=== PATIENT | male | born 1970 | race American Indian/Alaskan Native ===

== ENCOUNTER 2017-02-13 14:13 | Emergency (ER) | payer SELFPAY | END 2017-02-13 14:14 | disposition left against medical advice (07) | LOC: ED 14:13 | DX: R11.2 Nausea with vomiting, unspecified (principal); Z53.21 Procedure and treatment not carried out due to patient leaving prior to being seen by health care provider ==

== ENCOUNTER 2018-04-24 08:23 | Emergency (ER) | payer SELFPAY ==
[2018-04-24] MEDS ORDERED: TORADOL IV ONE (08:52)
[2018-04-24 09:13] LABS: Basophils # (Auto) 0.1 K/mm3 (0.0-0.1); Basophils % (Auto) 0.8 % (0.0-1.8); Eosinophils # (Auto) 0.1 K/mm3 (0.0-0.4); Eosinophils % (Auto) 0.6 % (0.0-4.3); Hematocrit 46.2 % (35.5-45.6); Hemoglobin 15.6 gm/dl (11.8-15.2); Lymphocytes # (Auto) 4.4 K/mm3 (1.2-5.4); Mean Corpuscular HGB Conc 34 % (32-34); Mean Corpuscular Volume 94 fl (84-94); Monocytes # (Auto) 0.7 K/mm3 (0.0-0.8); Monocytes % (Auto) 5.5 % (0.0-7.3); Platelet Count 286 K/mm3 (140-440); Red Blood Count 4.91 M/mm3 (3.65-5.03); Red Cell Distribution Width 13.8 % (13.2-15.2)
[2018-04-24 09:21] LABS: INR 0.87 (0.87-1.13)
[2018-04-24 09:22] LABS: Partial Thromboplastin Time 37.2 Sec. (24.2-36.6)
[2018-04-24 09:27] LABS: BUN/Creatinine Ratio 11; Blood Urea Nitrogen 12 mg/dL (9-20); Calcium 9.6 mg/dL (8.4-10.2); Hemolysis Index 57
--- NOTE | 2018-04-24 09:39 | XRay Report ---
FINAL REPORT EXAM: XR CHEST ROUTINE 2V HISTORY: chest pain TECHNIQUE: Frontal and lateral views of the chest. PRIORS: None currently available. FINDINGS: Cardiac silhouette is within normal limits. There is no effusion. There is no pneumothorax. There is no consolidation. There are no suspicious osseous lesions. IMPRESSION: No acute cardiopulmonary findings.
--- NOTE | 2018-04-24 10:34 | Emergency Department Report ---
ED Chest Pain HPI - General Chief Complaint: Chest Pain Stated Complaint: CHEST PAIN Time Seen by Provider: 04/24/18 08:49 Source: patient Mode of arrival: Ambulatory Limitations: No Limitations - History of Present Illness Initial Comments: Patient is a 48-year-old -[place] male who is presenting with left-sided chest pain for the past 3 days. Patient states that 2 weeks ago he had a mild cough and congestion which is starting to improve but now has sharp pain in the left chest. Patient states the pain is worse with deep breathing. He also states he feels as though he is starting to become very irritated in his throat. Patient's states the pain is sharp in nature and is 8 out of 10 in severity. Patient denies any fevers chills Stiffness at this time. Patient states is the sharp pain hits with deep breathing he then starts to feel some tightness in the chest and felt near syncopal this morning which prompted him to come to the hospital. Severity scale (0 -10): 6 - Related Data Previous Rx's Medication Instructions Recorded Last Taken Type hydroCHLOROthiazide [HCTZ] 25 mg PO QDAY #20 tablet 05/13/13 Unknown Rx ALBUTEROL Inhaler (OR & NICU) 2 puff IH QID PRN #1 inhalation 04/24/18 Unknown Rx [ProAir HFA Inhaler] HYDROcodone/APAP 5-325 [[place] 1 each PO Q6HR PRN #15 tablet 04/24/18 Unknown Rx 5/325] predniSONE [Deltasone] 20 mg PO QDAY #5 tab 04/24/18 Unknown Rx Allergies Allergy/AdvReac Type Severity Reaction Status Date / Time No Known Allergies Allergy Verified 05/13/13 10:56 Heart Score - HEART Score History: Slightly suspicious EKG: Normal Age: 45-65 Risk factors: 1-2 risk factors Troponin: < normal limit HEART Score: 2 ED Review of Systems ROS: Stated complaint: CHEST PAIN Other details as noted in HPI Comment: All other systems reviewed and negative ED Past Medical Hx - Past Medical History Hx Hypertension: Yes Additional medical history: colitis - Surgical History Additional Surgical History: left femur fx - Social History Smoking Status: Never Smoker - Medications Home Medications: Home Medications Medication Instructions Recorded Confirmed Last Taken Type hydroCHLOROthiazide [HCTZ] 25 mg PO QDAY #20 tablet 05/13/13 Unknown Rx ALBUTEROL Inhaler (OR & NICU) 2 puff IH QID PRN #1 inhalation 04/24/18 Unknown Rx [ProAir HFA Inhaler] HYDROcodone/APAP 5-325 [[place] 1 each PO Q6HR PRN #15 tablet 04/24/18 Unknown Rx 5/325] predniSONE [Deltasone] 20 mg PO QDAY #5 tab 04/24/18 Unknown Rx ED Physical Exam - General Limitations: No Limitations General appearance: alert, anxious, other (crying during physical exam) - Head Head exam: Present: atraumatic, normocephalic - Eye Eye exam: Present: normal appearance - ENT ENT exam: Present: mucous membranes moist - Neck Neck exam: Present: normal inspection - Respiratory Respiratory exam: Present: normal lung sounds bilaterally, chest wall tenderness (left sided). Absent: respiratory distress, wheezes, rales, rhonchi - Cardiovascular Cardiovascular Exam: Present: regular rate, normal rhythm. Absent: systolic murmur, diastolic murmur, rubs, gallop - GI/Abdominal GI/Abdominal exam: Present: soft, normal bowel sounds. Absent: distended, tenderness, guarding, rebound - Rectal Rectal exam: Present: deferred - Extremities Exam Extremities exam: Present: normal inspection - Back Exam Back exam: Present: normal inspection - Neurological Exam Neurological exam: Present: alert, oriented X3 - Psychiatric Psychiatric exam: Present: normal affect, normal mood - Skin Skin exam: Present: warm, dry, intact, normal color. Absent: rash ED Course Vital Signs 04/24/18 04/24/18 08:47 10:13 Temperature 97.6 F Pulse Rate 76 Respiratory 18 18 Rate Blood Pressure 170/111 [Right] ED Medical Decision Making - Lab Data Result diagrams: 04/24/18 08:54 04/24/18 08:54 Lab Results 04/24/18 04/24/18 04/24/18 Range/Units 08:54 08:54 08:54 WBC 12.6 H (4.5-11.0) K/mm3 RBC 4.91 (3.65-5.03) M/mm3 Hgb 15.6 H (11.8-15.2) gm/dl Hct 46.2 H (35.5-45.6) % MCV 94 (84-94) fl MCH 32 (28-32) pg MCHC 34 (32-34) % RDW 13.8 (13.2-15.2) % Plt Count 286 (140-440) K/mm3 Lymph % (Auto) 35.0 (13.4-35.0) % [place] % (Auto) 5.5 (0.0-7.3) % Eos % (Auto) 0.6 (0.0-4.3) % Baso % (Auto) 0.8 (0.0-1.8) % Lymph # 4.4 (1.2-5.4) K/mm3 [place] # 0.7 (0.0-0.8) K/mm3 Eos # 0.1 (0.0-0.4) K/mm3 Baso # 0.1 (0.0-0.1) K/mm3 Seg Neutrophils % 58.1 (40.0-70.0) % Seg Neutrophils # 7.3 (1.8-7.7) K/mm3 PT 12.3 (12.2-14.9) Sec. INR 0.87 (0.87-1.13) APTT 37.2 H (24.2-36.6) Sec. D-Dimer 118.2 (0-234) ng/mlDDU Sodium 140 (137-145) mmol/L Potassium 4.3 (3.6-5.0) mmol/L Chloride 102.3 (98-107) mmol/L Carbon Dioxide 25 (22-30) mmol/L Anion Gap 17 mmol/L BUN 12 (9-20) mg/dL Creatinine 1.1 (0.8-1.5) mg/dL Estimated GFR > 60 ml/min BUN/Creatinine Ratio 11 % Glucose 89 (75-100) mg/dL Calcium 9.6 (8.4-10.2) mg/dL Troponin T < 0.010 (0.00-0.029) ng/mL - EKG Data -: EKG Interpreted by In - EKG Data 04/24/18 10:33 EKG shows sinus tachycardia 113 with a left shift. There appears to be biatrial enlargement present. Patient has Q waves in inferior leads. There is no ST segment elevations or depressions present. Interpretation is a 0835 - Radiology Data Chest x-ray is within normal limits - Medical Decision Making Patient with reproducible pleuritic pain in the left chest. Patient had cold symptoms several days ago which are starting to resolve however his pain is worsening. Patient's troponin d-dimer are within normal limits. Patient likely with pleurisy and costochondritis. Patient will be given this was symptomatically for be discharged home. Blood pressure was elevated and he's been noncompliant with his hydrochlorothiazide prescriptions will be given. Critical care attestation.: If time is entered above; I have spent that time in minutes in the direct care of this critically ill patient, excluding procedure time. ED Disposition Clinical Impression: Pleurisy, Costochondral chest pain Disposition: DC-01 TO HOME OR SELFCARE Is pt being admited?: No Does the pt Need Aspirin: No Condition: Stable Instructions: Costochondritis (ED), Pleurisy (ED) Referrals: [facility] MD IVY [Primary Care Provider] - 3-5 Days Time of Disposition: 10:37
[2018-04-24 10:56] VITALS: BP 164/92
== END 2018-04-24 10:54 | disposition home or self-care (01) ==
LOC: ED 08:23
DX: M94.0 Chondrocostal junction syndrome [Tietze] (principal); R09.1 Pleurisy; I10 Essential (primary) hypertension
CPT/HCPCS: 36415; 71046; 80048; 84484; 85025; 85379; 85610; 85730; 93005; 93010; 96374; 99284; J1885